=== PATIENT | male | born 1955 | race Caucasian/White ===

== ENCOUNTER 2019-07-20 08:24 | Outpatient (CLI) | payer BC, MEDICARE ==
[2019-07-20 13:35] LABS: #Basophils 0.1 thou/uL (0.0-0.2); #Eosinphils 0.2 thou/uL (0.0-0.7); #Lymphocytes 2.1 thou/uL (1.20-3.40); #Monocytes 0.6 thou/uL (0.11-0.59); #Neutrophils 4.1 thou/uL (1.40-6.50); %Basophils 0.7 % (0.0-1.0); %Eosinophils 2.7 % (0.0-10.0); %Lymphocytes 29.6 % (21.0-51.0); %Monocytes 8.7 % (0.0-10.0); %Neutrophils 58.3 % (42.0-75.0); Hemoglobin 16.7 g/dL (14.0-18.0); Mean Corpuscular HGB CONC 34.9 g/dL (32.0-36.0); Mean Corpuscular Hemoglobin 33.7 pg (27.0-31.0); Mean Corpuscular Volume 96.5 fL (78.0-98.0); Mean Platelet Volume 7.3 fL (7.4-10.4); Platelet Count 160 thou/uL (130-400); RBC Distribution Width 13.1 % (11.5-14.5); Red Blood Cell (RBC) Count 4.95 mill/uL (4.70-6.10)
[2019-07-20 13:41] LABS: Prothrombin Time 12.9 SEC (12.0-14.7)
[2019-07-20 13:42] LABS: PTT 34.7 SEC (22.9-36.1)
[2019-07-20 13:49] LABS: Bacteria/HPF None Seen HPF (None Seen); Bilirubin Negative (Negative); Blood, Urine Negative (Negative); Clarity Clear (Clear); Glucose, Urine (Dipstick) Normal (Negative); Leukocyte Negative Leu/uL (Negative); Mucous/LPF Rare LPF (<2+); Nitrite Negative (Negative); Protein, Urine (Dipstick) Negative (Neg-Trace); Squamous Epithelial 0-3 HPF (0-3); Urobilinogen Normal mg/dL (Less than 2); WBC/HPF 0-3 HPF (0-3)
[2019-07-20 13:57] LABS: Anion Gap 13 mmol/L (10-20); BUN (Urea Nitrogen) 12 mg/dL (8.4-25.7); Calc. Creatinine Clearance 0 mL/min (70-130); Calcium 9.8 mg/dL (7.8-10.44); Carbon Dioxide 25 mmol/L (23-31); Chloride 103 mmol/L (98-107); Estimated GFR-MDRD 77; Glucose 96 mg/dL (80-115); Sodium 137 mmol/L (136-145)
--- NOTE | 2019-07-21 11:53 | EKG ---
Test Reason : Blood Pressure : / mmHG Vent. Rate : 087 BPM Atrial Rate : 087 BPM P-R Int : 144 ms QRS Dur : 092 ms QT Int : 358 ms P-R-T Axes : 075 070 016 degrees QTc Int : 430 ms Normal sinus rhythm Normal ECG Confirmed by SRAVANTHI HYDE ([id number]) on 07/21/2019 11:53:19 AM Referred By: DAVIDRO Confirmed By:SRAVANTHI HYDE
== END 2019-07-20 08:25 | disposition home or self-care (01) ==
LOC: LABBT 08:24
PROVIDERS: ATTEND Orthopaedic Surgery
DX: Z01.818 Encounter for other preprocedural examination (principal); M17.12 Unilateral primary osteoarthritis, left knee
CPT/HCPCS: 80048; 81001; 85025; 85610; 85730; 87081; 93005; 93010

== ENCOUNTER 2019-07-20 12:30 | Inpatient (IN) | payer BC, MEDICARE ==
[2019-07-31] MEDS ORDERED: Sodium Chloride 0.9% 100 ML ONE (06:28)
[2019-07-31] MEDS ORDERED: Tranexamic Acid 1,000 MG/10 ML VIAL ONE ×2 (06:28→09:41)
[2019-07-31] MEDS ORDERED: Clindamycin/D5W 600 mg/50 ml Premix Bag ONE (06:28)
[2019-07-31] MEDS ORDERED: Bupivacaine PF 0.5% 30 ML VIAL ONE (06:28)
[2019-07-31] MEDS ORDERED: Clindamycin/D5W 600 MG in Premix Bag 1 BAG IVPB SCH (06:30)
[2019-07-31] MEDS ORDERED: Fentanyl 100 MCG/2 ML VIAL ONE ×3 (06:30→09:33)
[2019-07-31] MEDS ORDERED: Lidocaine 1% (PF) 30 ML VIAL ONE (06:30)
[2019-07-31] MEDS ORDERED: Midazolam HCl 2 mg/2 ml Vial ONE (06:30)
[2019-07-31] MEDS ORDERED: Promethazine HCl 25 MG/ML VIAL IM PRN ×3 (07:10→09:15)
[2019-07-31] MEDS ORDERED: Zolpidem Tartrate 5 MG TAB PO PRN ×2 (07:10→09:05)
[2019-07-31] MEDS ORDERED: Ropivacaine HCl/PF 250 ML in Premix Bag 1 BAG NERVE BLCK SCH (07:10)
[2019-07-31] MEDS ORDERED: Fentanyl 100 MCG/2 ML VIAL SLOW IVP PRN (07:10)
[2019-07-31] MEDS ORDERED: Acetaminophen 325 MG TAB PO PRN ×2 (07:10→09:05)
[2019-07-31] MEDS ORDERED: traMADol HCl 50 MG TAB PO PRN (07:10)
[2019-07-31] MEDS ORDERED: HYDROcodone/Acetaminophen 10/325 mg Tablet PO PRN (07:10)
[2019-07-31] MEDS ORDERED: Ondansetron PF 4 MG/2 ML Vial IVP PRN ×2 (07:10→09:05)
[2019-07-31] MEDS ORDERED: diphenhydrAMINE 25 MG CAP PO PRN (09:05)
[2019-07-31] MEDS ORDERED: Promethazine HCl 25 MG/ML VIAL SLOW IVP PRN (09:15)
[2019-07-31] MEDS ORDERED: Tranexamic Acid 1,000 MG in Sodium Chloride 0.9% 100 ML IVPB SCH (09:15)
[2019-07-31] MEDS ORDERED: Ondansetron HCl/PF 4 MG/2 ML Vial IVP PRN (09:15)
--- NOTE | 2019-07-31 09:19 | OP ---
DATE OF PROCEDURE: 07/31/2019 REGISTERED NURSE FETAL: Bayron Serrano PA-C PREOPERATIVE DIAGNOSIS: Left knee osteoarthrosis. POSTOPERATIVE DIAGNOSIS: Left knee osteoarthrosis. PROCEDURE PERFORMED: Left total knee replacement using [email or web address] pinless navigation. ESTIMATED BLOOD LOSS: Minimal. COMPLICATIONS: None. ANESTHESIA: The patient did have a general anesthetic as well as a preoperative block. IMPLANTS: To the left knee, Isaías Triathlon total knee system, femur of size 6 cruciate-retaining femur. We used a size 6 primary tibial baseplate. We used a 6 x 11 mm CS X3 tibial poly and a 29 x 9 X3 patella. DISPOSITION: He did go to recovery room in stable condition. INDICATIONS: This is a 64-year-old male, who has failed all nonoperative treatment for significant left knee arthritis and at this time wished to have his knee replaced. PROCEDURE IN DETAIL: After all appropriate consent forms were explained and signed, the patient was taken back to the operating room and at this time was given general anesthetic. Once the level of anesthesia was appropriate, a well-padded tourniquet was placed on the left leg, and the leg was then prepped and draped in standard surgical fashion. The limb was exsanguinated and tourniquet taken up to 300 mmHg. Midline incision was made with a 10 blade down through the skin and subcutaneous tissue. Bovie electrocautery was used to coagulate any brisk venous bleeding. A new blade was used to make a medial parapatellar arthrotomy. Small subperiosteal release was performed medially and excess fat pad was removed. The knee was flexed up to gain access to the femur. The femur was navigated and distal femoral resection was made. Epicondylar access was used to align our sizing jig and this was pinned in place. We sized our femur to be a size 6 cruciate-retaining femur. 4:1 cutting block was applied and pinned. Anterior and posterior chamfer cuts were then made. We navigated out our proximal tibia and made our proximal tibial resection. Spreaders were used to remove any posterior osteophytes off the back of the femur as well as remaining meniscal tissue. A long alignment kwan was then used to achieve correct rotation of our tibial baseplate and we used a size 6 primary tibial baseplate was chosen. This was pinned in place. We trialed the polyethylene and we used a 6 x 11 mm CS X3 tibial polyethylene gave us full extension and good stability throughout range of motion. Two towel clips and a saw were used to cut our patella. Three lug nuts were drilled and a 29 x 9 X3 patella was trialed which sat nicely in the trochlear groove. We then drilled our femur and punched our tibia. All components were removed. The knee was thoroughly irrigated and dried. Cement was mixed into the cement gun on the back table. Components were then placed. The knee was held out in full extension until the cement had dried. All excess bone cement was removed. Multiple #2 Vicryl stitches as well as a Quill were used to close our extensor mechanism. 0 Quill followed by a running Monoderm was then used to close the skin. Surgicel glue was then used on the skin. Once this had dried, soft tissue dressing was applied to the limb, tourniquet was let down , and the toes pinked up nicely. The patient was then awakened and taken to the recovery room in stable condition. All counts were correct at the end of the case. The patient did receive preoperative IV antibiotics. The patient was injected with Marcaine for postoperative pain relief. Job ID: [id number] [facility]
[2019-07-31] MEDS ORDERED: Ropivacaine 0.2% HCl/PF (40 MG/20 ML VIAL) ONE (09:32)
[2019-07-31] MEDS ORDERED: Lidocaine 1% PF 5 ML VIAL ONE (09:32)
[2019-07-31] MEDS ORDERED: EPHEDRINE 25 MG/5 ML SYRINGE ONE (09:32)
[2019-07-31] MEDS ORDERED: PROPOFOL 200 MG/20 ML VIAL ONE (09:32)
[2019-07-31] MEDS ORDERED: PHENYLEPHRINE-NS 100 MCG/ML 10 ML SYRINGE ONE (09:32)
[2019-07-31] MEDS ORDERED: Bupivacaine HCl 0.5%/Epinephrine 1:200,000/PF 30 ml Vial ONE (09:32)
[2019-07-31] MEDS ORDERED: Lorazepam 0.5 MG TAB PO PRN (12:57)
[2019-07-31] MEDS: Ketorolac Tromethamine 30 MG/ML VIAL IVP SCH ×3 (13:03→23:47)
[2019-07-31] MEDS: Sodium Chloride 0.9% 1,000 ML IV SCH ×2 (13:04→21:06)
[2019-07-31] MEDS: Clindamycin/D5W 900 MG in Premix Bag 1 BAG IVPB SCH ×2 (13:43→21:05)
[2019-07-31] MEDS: HYDROcodone/Acetaminophen 10/325 mg Tablet PO PRN (13:48)
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
[2019-07-31] MEDS: Aspirin 81 mg Enteric Coated Tablet PO SCH (21:08)
[2019-07-31] MEDS: Ciprofloxacin HCL/Dexameth Otic Drops 7.5 ml Bottle L EAR SCH (21:08)
[2019-08-01] MEDS: HYDROcodone/Acetaminophen 10/325 mg Tablet PO PRN ×5 (04:18→22:34)
[2019-08-01] MEDS: Ketorolac Tromethamine 30 MG/ML VIAL IVP SCH ×4 (05:14→22:38)
[2019-08-01 05:24] LABS: Hemoglobin 14.2 g/dL (14.0-18.0); Mean Corpuscular HGB CONC 34.3 g/dL (32.0-36.0); Mean Corpuscular Hemoglobin 34.2 pg (27.0-31.0); Mean Corpuscular Volume 99.7 fL (78.0-98.0); Platelet Count 130 thou/uL (130-400); RBC Distribution Width 13.7 % (11.5-14.5); Red Blood Cell (RBC) Count 4.15 mill/uL (4.70-6.10); White Blood Cell (WBC) Count 7.6 thou/uL (4.8-10.8)
[2019-08-01] MEDS: Sodium Chloride 0.9% 1,000 ML IV SCH ×2 (07:40→15:46)
[2019-08-01] MEDS: Senokot S 8.6-50 MG TAB PO SCH ×2 (08:26→22:37)
[2019-08-01] MEDS: Amlodipine 10 MG TAB PO SCH (08:26)
[2019-08-01] MEDS: Hydrochlorothiazide 25 MG TAB PO SCH (08:27)
[2019-08-01] MEDS: Ferrous Gluconate 324 MG TAB PO SCH ×2 (08:27→22:38)
[2019-08-01] MEDS: Tamsulosin HCl 0.4 MG CAP PO SCH (08:27)
[2019-08-01] MEDS: Multivitamin W/ Minerals 1 TAB PO SCH (08:28)
[2019-08-01] MEDS: Ciprofloxacin HCL/Dexameth Otic Drops 7.5 ml Bottle L EAR SCH (08:28)
[2019-08-01] MEDS: Aspirin 81 mg Enteric Coated Tablet PO SCH ×2 (08:28→22:37)
[2019-08-01] MEDS: Rosuvastatin 5 MG TAB PO SCH (08:28)
[2019-08-01] MEDS ORDERED: Aspirin 81 mg Enteric Coated Tablet PO SCH (09:00)
--- NOTE | 2019-08-01 09:43 | PRG ---
DATE OF SERVICE: 08/01/2019 SUBJECTIVE: Chandrakant is a 64-year-old male, postop day 1 from left total knee arthroplasty. He is doing relatively well. He has no complaints this morning. He is quite comfortable. He was able to ambulate with standby assist of one this morning. OBJECTIVE: VITAL SIGNS: Temperature 98.0, pulse 74, respiratory rate 18 and nonlabored, blood pressure 108/69. GENERAL: He is alert and oriented to person, place, time, situation, responsive, and appropriate with examiner. EXTREMITIES: His incision is clean. There is no strike through. No erythema. He is neurovascularly intact in the left lower extremity. LABORATORY DATA: Hemoglobin and hematocrit of 14.2 and 41.3. IMPRESSION: A 64-year-old male, postop day 1, left total knee arthroplasty, doing well. PLAN: Continue current care. Expected discharge to home tomorrow. Job ID: [id number]
[2019-08-01 11:42] VITALS: BMI 33.5
--- NOTE | 2019-08-01 17:52 | PDOC.HOSPP ---
- Subjective Encounter Date: 08/01/19 Encounter Time: 15:30 Subjective: pt up in bed has some pain to his left knee. - Objective Vital Signs & Weight: Vital Signs (12 hours) Temp Pulse Resp BP BP Pulse Ox 08/01/19 15:26 99.4 F 87 20 127/82 92 L 08/01/19 08:26 74 108/69 08/01/19 07:45 95 08/01/19 07:14 98.0 F 74 18 108/69 95 Weight Admit Weight 268 lb Weight 268 lb I&O: 07/31/19 08/01/19 08/02/19 06:59 06:59 06:59 Intake Total 1480 Output Total 600 Balance 880 Result Diagrams: 08/01/19 05:04 Hospitalist ROS - Review of Systems Cardiovascular: denies: chest pain, palpitations, orthopnea, paroxysmal noc. dyspnea, edema, light headedness, other Gastrointestinal: denies: nausea, vomiting, abdominal pain, diarrhea, constipation, melena, hematochezia, other Genitourinary: denies: dysuria, frequency, incontinence, hematuria, retention, other Musculoskeletal: reports: leg pain - Medication Medications: Active Medications Generic Name Dose Route Start Last Admin Trade Name Freq PRN Reason Stop Dose Admin Hydrocodone Bitart/Acetaminophen 1 tab 07/31/19 07:10 07/31/19 23:53 [place] 10/325 PO 1 tab Q4H PRN Administration Pain (1-3) Hydrocodone Bitart/Acetaminophen 2 tab 07/31/19 07:10 08/01/19 13:47 [place] 10/325 PO 2 tab Q4H PRN Administration PAIN (4-6) Amlodipine Besylate 10 mg 08/01/19 09:00 08/01/19 08:26 Norvasc PO Not Given QAM JOSHUA Aspirin 81 mg 07/31/19 21:00 08/01/19 08:28 Ecotrin PO 81 mg BID JOSHUA Administration Ferrous Gluconate 324 mg 08/01/19 09:00 08/01/19 08:27 Fergon PO 324 mg BID JOSHUA Administration Hydrochlorothiazide 25 mg 08/01/19 09:00 08/01/19 08:27 Hydrochlorothiazide PO 25 mg QAM JOSHUA Administration Ropivacaine 250 ml/ Device 250 mls @ 10 mls/hr 07/31/19 07:10 08/01/19 11:20 NERVE BLCK 08/03/19 07:09 250 mls INF JOSHUA Administration Sodium Chloride 1,000 mls @ 100 mls/hr 07/31/19 09:15 08/01/19 15:46 Normal Saline 0.9% IV Not Given .Q10H [facility] Iron/Minerals/Multivitamins 1 tab 08/01/19 09:00 08/01/19 08:28 Theragran M PO 1 tab DAILY JOSHUA Administration Ketorolac Tromethamine 30 mg 07/31/19 12:00 08/01/19 12:17 Toradol IVP 08/02/19 06:01 30 mg Q6HR JOSHUA Administration Rosuvastatin Calcium 5 mg 08/01/19 09:00 08/01/19 08:28 Crestor PO 5 mg QAM JOSHUA Administration Senna/Docusate Sodium 2 tab 08/01/19 09:00 08/01/19 08:26 Senokot S PO 2 tab BID JOSHUA Administration Tamsulosin HCl 0.4 mg 08/01/19 09:00 08/01/19 08:27 Flomax PO 0.4 mg QAM JOSHUA Administration Testosterone Cypionate 100 mg 08/01/19 09:00 08/01/19 12:18 Depo-Testosterone IM 100 mg Q7D@0900 JOSHUA Administration - Exam Neck: negative: supple, symmetric, no JVD, no thyromegaly, no lymphadenopathy, no carotid bruit, JVD Heart: negative: RRR, no murmur, no gallops, no rubs, normal peripheral pulses, irregular, diminshed peripheral pulses, murmur present, II/IV, III/IV Respiratory: negative: CTAB, no wheezes, no rales, no ronchi, normal chest expansion, no tachypnea, normal percussion, rales, rhonchi, tachypneic, wheezes Gastrointestinal: negative: soft, non-tender, non-distended, normal bowel sounds , no palpable masses, no hepatomegaly, no splenomegaly, no bruit, no guarding, no rigidity, tender to palpation, distended, diminished bowl sounds, voluntary guarding Hosp A/P (1) S/P left knee surgery Code(s): Z98.890 - OTHER SPECIFIED POSTPROCEDURAL STATES Status: Acute (2) HTN (hypertension) Code(s): I10 - ESSENTIAL (PRIMARY) HYPERTENSION Status: Acute (3) Hyperlipemia Code(s): E78.5 - HYPERLIPIDEMIA, UNSPECIFIED Status: Acute - Plan will continue home meds. He does not take the cipro otic drops any more. will discontinue. He did receive a shot of testosterone. i have recommended against it while he is recovering. I also recommended to pt and his a outpatient sleep study.
[2019-08-02] MEDS: Sodium Chloride 0.9% 1,000 ML IV SCH ×3 (01:41→20:54)
[2019-08-02 05:53] LABS: Mean Corpuscular HGB CONC 33.4 g/dL (32.0-36.0); Mean Corpuscular Hemoglobin 33.3 pg (27.0-31.0); Mean Corpuscular Volume 99.7 fL (78.0-98.0); Platelet Count 116 thou/uL (130-400); RBC Distribution Width 13.5 % (11.5-14.5); White Blood Cell (WBC) Count 7.6 thou/uL (4.8-10.8)
[2019-08-02] MEDS: Ketorolac Tromethamine 30 MG/ML VIAL IVP SCH (06:12)
[2019-08-02] MEDS: HYDROcodone/Acetaminophen 10/325 mg Tablet PO PRN ×5 (06:13→23:28)
[2019-08-02] MEDS: Hydrochlorothiazide 25 MG TAB PO SCH (09:37)
[2019-08-02] MEDS: Amlodipine 10 MG TAB PO SCH (09:37)
[2019-08-02] MEDS: Senokot S 8.6-50 MG TAB PO SCH ×2 (09:37→20:49)
[2019-08-02] MEDS: Tamsulosin HCl 0.4 MG CAP PO SCH (09:37)
[2019-08-02] MEDS: Ferrous Gluconate 324 MG TAB PO SCH ×2 (09:37→20:49)
[2019-08-02] MEDS: Aspirin 81 mg Enteric Coated Tablet PO SCH ×2 (09:37→20:49)
[2019-08-02] MEDS: Multivitamin W/ Minerals 1 TAB PO SCH (09:37)
[2019-08-02] MEDS: Rosuvastatin 5 MG TAB PO SCH (09:38)
[2019-08-02] MEDS: traMADol HCl 50 MG TAB PO PRN ×2 (12:03→20:49)
[2019-08-03] MEDS: HYDROcodone/Acetaminophen 10/325 mg Tablet PO PRN ×3 (03:02→11:39)
[2019-08-03 05:45] LABS: Hemoglobin 12.5 g/dL (14.0-18.0); Mean Corpuscular HGB CONC 32.3 g/dL (32.0-36.0); Mean Corpuscular Hemoglobin 32.4 pg (27.0-31.0); Mean Platelet Volume 7.2 fL (7.4-10.4); Platelet Count 134 thou/uL (130-400); RBC Distribution Width 13.7 % (11.5-14.5); Red Blood Cell (RBC) Count 3.85 mill/uL (4.70-6.10); White Blood Cell (WBC) Count 8.5 thou/uL (4.8-10.8)
[2019-08-03] MEDS: Sodium Chloride 0.9% 1,000 ML IV SCH (06:51)
[2019-08-03] MEDS: Hydrochlorothiazide 25 MG TAB PO SCH (08:38)
[2019-08-03] MEDS: Amlodipine 10 MG TAB PO SCH (08:38)
[2019-08-03] MEDS: Rosuvastatin 5 MG TAB PO SCH (08:38)
[2019-08-03] MEDS: Aspirin 81 mg Enteric Coated Tablet PO SCH (08:38)
[2019-08-03] MEDS: Multivitamin W/ Minerals 1 TAB PO SCH (08:39)
[2019-08-03] MEDS: Ferrous Gluconate 324 MG TAB PO SCH (08:39)
[2019-08-03] MEDS: Senokot S 8.6-50 MG TAB PO SCH (08:39)
[2019-08-03] MEDS: Tamsulosin HCl 0.4 MG CAP PO SCH (08:39)
[2019-08-03 12:13] VITALS: BP 152/91; TEMP 97.6
== END 2019-08-03 15:10 | disposition home or self-care (01) | DRG 470 ==
LOC: SJJU 07-31 05:32
PROVIDERS: ADMIT Orthopaedic Surgery; ATTEND Orthopaedic Surgery
PROC: 0SRD0J9 Replacement of Left Knee Joint with Synthetic Substitute, Cemented, Open Approach (ICD-10-PCS; principal; 2019-07-31)
DX: M17.12 Unilateral primary osteoarthritis, left knee (principal); Z96.642 Presence of left artificial hip joint; K21.9 Gastro-esophageal reflux disease without esophagitis; I10 Essential (primary) hypertension; N40.0 Benign prostatic hyperplasia without lower urinary tract symptoms; E78.5 Hyperlipidemia, unspecified; E66.9 Obesity, unspecified; Z90.49 Acquired absence of other specified parts of digestive tract; Z88.0 Allergy status to penicillin; Z68.33 Body mass index [BMI] 33.0-33.9, adult
CPT/HCPCS: 36415; 85027; C1713; C1776; J0670; J1071; J1885; J2001; J2250; J2704; J2795; J3010; J3370; J3490; J7050; S0020

== ENCOUNTER 2019-12-29 05:20 | Outpatient (CLI) | payer BC, OTHER ==
[2019-12-29 11:19] LABS: Hemoglobin 18.1 g/dL (14.0-18.0); Mean Corpuscular HGB CONC 32.7 g/dL (32.0-36.0); Mean Corpuscular Hemoglobin 32.5 pg (27.0-31.0); Mean Corpuscular Volume 99.5 fL (78.0-98.0); Mean Platelet Volume 7.2 fL (7.4-10.4); Platelet Count 146 thou/uL (130-400); RBC Distribution Width 13.3 % (11.5-14.5); Red Blood Cell (RBC) Count 5.55 mill/uL (4.70-6.10); White Blood Cell (WBC) Count 6.8 thou/uL (4.8-10.8)
[2019-12-29 11:52] LABS: Anion Gap 10 mmol/L (10-20); BUN (Urea Nitrogen) 13 mg/dL (8.4-25.7); Calc. Creatinine Clearance 0 mL/min (70-130); Calcium 9.3 mg/dL (7.8-10.44); Carbon Dioxide 29 mmol/L (23-31); Chloride 102 mmol/L (98-107); Estimated GFR-MDRD 65; Glucose 81 mg/dL (80-115); Potassium 4.3 mmol/L (3.5-5.1); Sodium 137 mmol/L (136-145)
[2019-12-29 14:16] LABS: Bacteria/HPF None Seen HPF (None Seen); Bilirubin Negative (Negative); Blood, Urine Negative (Negative); Clarity Clear (Clear); Glucose, Urine (Dipstick) Normal (Negative); Ketone, Urine Negative (Negative); Leukocyte Negative Leu/uL (Negative); Nitrite Negative (Negative); Protein, Urine (Dipstick) Negative (Neg-Trace); RBC/HPF 0-3 HPF (0-3); Specific Gravity, Urine 1.018 (1.002-1.036); Squamous Epithelial None Seen HPF (0-3); Urobilinogen Normal mg/dL (Less than 2); WBC/HPF 0-3 HPF (0-3); pH, Urine 6.5 (5.0-9.0)
[2019-12-29 17:19] LABS: SARS-CoV-2 MS2 Positive; SARS-CoV-2 N Gene Negative; SARS-CoV-2 S Gene Negative; SARS-CoV-2 by NAA Not Detected (NotDetected); SARS-CoV-2 orf1ab Negative
== END 2019-12-29 05:21 | disposition home or self-care (01) ==
LOC: LABBT 05:20
PROVIDERS: ATTEND Urology
DX: Z01.812 Encounter for preprocedural laboratory examination (principal); Z11.59 Encounter for screening for other viral diseases; N40.1 Benign prostatic hyperplasia with lower urinary tract symptoms
CPT/HCPCS: 80048; 81001; 85027; 87086; 87635; U0003

== ENCOUNTER 2020-01-02 06:16 | Observation (INO) | payer BC ==
[2019-12-28 13:05] VITALS: BMI 33.7
[2020-01-02] MEDS ORDERED: Fentanyl 250 MCG/5 ML VIAL ONE (06:33)
[2020-01-02] MEDS ORDERED: Levofloxacin 500 mg/D5W 100 ml Premix Bag ONE (06:40)
[2020-01-02] MEDS ORDERED: Midazolam HCl 2 mg/2 ml Vial ONE (07:14)
[2020-01-02] MEDS ORDERED: diphenhydrAMINE 50 MG/ML VIAL IVP PRN (08:38)
[2020-01-02] MEDS ORDERED: Zolpidem Tartrate 5 MG TAB PO PRN (08:38)
[2020-01-02] MEDS ORDERED: hydrALAZINE 20 MG/ML VIAL SLOW IVP PRN (08:38)
[2020-01-02] MEDS ORDERED: Morphine 2 MG/ML VIAL SLOW IVP PRN (08:38)
[2020-01-02] MEDS ORDERED: Ondansetron PF 4 MG/2 ML Vial IVP PRN (08:38)
[2020-01-02] MEDS ORDERED: Ketorolac Tromethamine 30 MG/ML VIAL IVP PRN (08:38)
--- NOTE | 2020-01-02 08:40 | OP ---
DATE OF PROCEDURE: 01/02/2020 PREOPERATIVE DIAGNOSIS: Enlarged prostate with lower urinary tract symptoms. POSTOPERATIVE DIAGNOSIS: Enlarged prostate with lower urinary tract symptoms. PROCEDURE PERFORMED: Transurethral resection of prostate. ANESTHESIA: General. COMPLICATIONS: None. ESTIMATED BLOOD LOSS: Minimal. SPECIMEN: Prostate chips. DESCRIPTION OF PROCEDURE: After informed consent, the patient was taken to the operating room, transferred to the table on his own power. Anesthesia was established. Time-out was performed, showing the correct patient, site, procedure. We performed a digital rectal exam noting a 50 to 60 g prostate, smooth and symmetric with no nodules or induration. He was then prepped and draped in the lithotomy position. Preoperative antibiotics were administered. I began by inserting the rigid resectoscope through the urethra noting a normal course and caliber of the urethra into the prostate noting mildly coapting lateral lobes with a very large median lobe obstructing the entire prostatic fossa. The bladder was then entered and systematically examined noting no mucosal abnormalities. He does have moderate trabeculation with several diverticula along the posterior wall. Both ureters were normal in appearance. I then used the resection loop to remove the median lobe and then resected from the bladder neck back to the verumontanum in the midline. I then resected his left lobe from about 1 o'clock down to midline and then the right lobe from 11 o'clock down to midline. He had very little anterior obstructing tissue, which was carefully resected. All resection was limited proximal to the verumontanum. Meticulous hemostasis was then achieved. The [employer] evacuator was used to remove the prostate chips. Both ureters were inspected and uninvolved with resection. The bladder was then once again examined, noting no further prostate chips. No active bleeding was noted and so the scope was removed and a 22-[place]ian 3-way catheter placed with 30 mL instilled in the balloon. This was connected to bag drainage and CBI initiated. He was then awoken from anesthesia, transferred back to his hospital bed and taken to PACU in stable condition, where he will be admitted overnight. Job ID: [id number]
[2020-01-02] MEDS ORDERED: Fentanyl 100 MCG/2 ML VIAL ONE (08:41)
[2020-01-02] MEDS: Rosuvastatin 5 MG TAB PO SCH (10:05)
[2020-01-02] MEDS: Hydrochlorothiazide 25 MG TAB PO SCH (10:05)
[2020-01-02] MEDS: Aspirin 81 mg Enteric Coated Tablet PO SCH (10:05)
[2020-01-02] MEDS: Docusate 100 MG CAP PO SCH ×2 (10:05→20:15)
[2020-01-02] MEDS: Amlodipine 10 MG TAB PO SCH (10:05)
[2020-01-02] MEDS: Sodium Chloride 0.9% 1,000 ML IV SCH ×2 (10:12→20:20)
[2020-01-02] MEDS ORDERED: Prevnar 13-Val Conj/PF 0.5 ML SYRINGE IM ONE (10:15)
[2020-01-02] MEDS ORDERED: PROPOFOL 200 MG/20 ML VIAL ONE (10:25)
[2020-01-02] MEDS ORDERED: Dexamethasone 20 MG/5 ML VIAL ONE (10:25)
[2020-01-02] MEDS ORDERED: PHENYLEPHRINE-NS 100 MCG/ML 10 ML SYRINGE ONE (10:25)
[2020-01-02] MEDS ORDERED: Succinylcholine Chloride 20 MG/ML 10 ml SYRINGE FS ONE (10:25)
[2020-01-02] MEDS ORDERED: EPHEDRINE 25 MG/5 ML SYRINGE ONE (10:25)
[2020-01-02] MEDS ORDERED: Lidocaine 1% PF 5 ML VIAL ONE (10:25)
[2020-01-02] MEDS ORDERED: Ondansetron PF 4 MG/2 ML Vial ONE (10:25)
[2020-01-02] MEDS: Oxybutynin 5 MG TAB PO PRN ×2 (11:35→20:20)
[2020-01-02] MEDS: HYDROcodone/Acetaminophen 5/325 mg Tablet PO PRN ×2 (15:51→22:26)
[2020-01-03] MEDS: Sodium Chloride 0.9% 1,000 ML IV SCH (08:24)
[2020-01-03] MEDS: Aspirin 81 mg Enteric Coated Tablet PO SCH (08:25)
[2020-01-03] MEDS: Docusate 100 MG CAP PO SCH (08:25)
[2020-01-03] MEDS: Amlodipine 10 MG TAB PO SCH (08:25)
[2020-01-03] MEDS: Oxybutynin 5 MG TAB PO PRN (08:25)
[2020-01-03] MEDS: Rosuvastatin 5 MG TAB PO SCH (08:25)
[2020-01-03] MEDS: Hydrochlorothiazide 25 MG TAB PO SCH (08:26)
[2020-01-03] MEDS: HYDROcodone/Acetaminophen 5/325 mg Tablet PO PRN (10:02)
[2020-01-03 11:41] VITALS: BP 117/77; TEMP 97.5
--- NOTE | 2020-01-03 12:29 | DIS ---
DATE OF ADMISSION: 01/02/2020 DATE OF DISCHARGE: 01/03/2020 DISCHARGE DIAGNOSES: Enlarged prostate with lower urinary tract symptoms. HOSPITAL COURSE: The patient underwent an uncomplicated bipolar transurethral resection of the prostate. He was maintained with CBI overnight, which was turned off the following morning with urine remaining clear. He was deemed stable for discharge home at that point. DISCHARGE MEDICATIONS: Include; 1. Bactrim. 2. Ibuprofen. 3. Oxybutynin. 4. Tramadol. He will resume all home medications. DISCHARGE INSTRUCTIONS: Can be found on his specific transurethral resection of prostate discharge sheet. DISCHARGE PHYSICAL EXAMINATION: GENERAL: No acute distress. LUNGS: Unlabored breathing. HEART: Regular rate and rhythm. ABDOMEN: Soft, nontender, and nondistended. GENITOURINARY: Abbott catheter in good position. Draining clear urine, off CBI. SKIN: Warm and dry. No peripheral edema. Job ID: [id number]
== END 2020-01-03 13:05 | disposition home or self-care (01) ==
LOC: SDC 06:16 → SURG A 07:21
PROVIDERS: ADMIT Urology; ATTEND Urology
PROC: 0VB08ZZ Excision of Prostate, Via Natural or Artificial Opening Endoscopic (ICD-10-PCS; principal; 2020-01-03)
DX: N40.1 Benign prostatic hyperplasia with lower urinary tract symptoms (principal); I10 Essential (primary) hypertension; E34.9 Endocrine disorder, unspecified; Z79.82 Long term (current) use of aspirin; Z79.899 Other long term (current) drug therapy; Z88.0 Allergy status to penicillin; Z88.8 Allergy status to other drugs, medicaments and biological substances
CPT/HCPCS: 88305; 96360; 96361; G0378; J1100; J1956; J2250; J2405; J2704; J3010; J7620